=== PATIENT | female | born 1960 ===

== ENCOUNTER 2022-05-16 12:25 | Emergency (ER) | payer SELFPAY ==
[2022-05-16 12:57] VITALS: BP 155/61
[2022-05-16] MEDS ORDERED: TETANUS,DIPH,PERTUSS(ACELL) VACCINE 0.5 ML SYRINGE IM ONE (13:10)
--- NOTE | 2022-05-16 13:34 | Emergency Department Report ---
ED General Adult HPI - General Chief complaint: Extremity Injury, Upper Stated complaint: HAND PAIN Time Seen by Provider: 05/16/22 13:05 Source: patient Mode of arrival: Ambulatory Limitations: No Limitations - History of Present Illness Initial comments: 62 yo female presents to ed for evaluation after accidental needle stick. 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 She states that she did rinse the area then cleaned it with alcohol after it happened. She states that she is unsure of who used the lancet. Complaint: needle stick -: Sudden Severity scale (0 -10): 0 Associated Symptoms: denies: chest pain, cough, fever/chills Treatments Prior to Arrival: none - Related Data Previous Rx's Medication Instructions Recorded Last Taken Type Emtricitabine/Tenofovir (Tdf) 2 each PO BID #60 tab 05/16/22 Unknown Rx [Truvada 100 mg-150 mg Tablet] Raltegravir Potassium [Isentress] 400 mg PO BID #60 tab 05/16/22 Unknown Rx Allergies Allergy/AdvReac Type Severity Reaction Status Date / Time No Known Allergies Allergy Verified 05/16/22 12:58 ED Review of Systems ROS: Stated complaint: HAND PAIN Other details as noted in HPI Comment: All other systems reviewed and negative Constitutional: denies: chills, fever Respiratory: denies: shortness of breath Cardiovascular: denies: chest pain, palpitations Neurological: denies: headache ED Past Medical Hx - Past Medical History Hx Arthritis: Yes - Medications Home Medications: Home Medications Medication Instructions Recorded Confirmed Last Taken Type Emtricitabine/Tenofovir (Tdf) 2 each PO BID #60 tab 05/16/22 Unknown Rx [Truvada 100 mg-150 mg Tablet] Raltegravir Potassium [Isentress] 400 mg PO BID #60 tab 05/16/22 Unknown Rx ED Physical Exam - General Limitations: No Limitations General appearance: alert, in no apparent distress - Head Head exam: Present: atraumatic, normocephalic - Eye Eye exam: Present: normal appearance. Absent: conjunctival injection - Respiratory Respiratory exam: Absent: respiratory distress - Cardiovascular Cardiovascular Exam: Present: bradycardia - GI/Abdominal GI/Abdominal exam: Absent: distended - Expanded Upper Extremity Exam Right Hand L/R Front: 1 - Positive: other (small needle steven) Vascular: Present: normal capillary refill, radial pulse. Absent: vascular compromise, Pallo - Back Exam Back exam: Present: normal inspection - Neurological Exam Neurological exam: Present: alert, oriented X3 - Psychiatric Psychiatric exam: Present: normal affect, normal mood - Skin Skin exam: Present: warm, dry, intact, normal color ED Course Vital Signs 05/16/22 05/16/22 12:52 14:22 Temperature 97.7 F Pulse Rate 49 L Respiratory 14 16 Rate Blood Pressure 155/61 [Left] O2 Sat by Pulse 99 98 Oximetry ED Medical Decision Making - Lab Data Result diagrams: 05/16/22 13:15 05/16/22 13:15 - Medical Decision Making 62 yo female presents to ed for evaluation after accidental needle stick. 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 She states that she did rinse the area then cleaned it with alcohol after it happened. She states that she is unsure of who used the lancet. Physical exam unremarkable. Tdap updated. Hep B & C and rapid HIV negative. Patient d/jam home with [facility] and [facility] and advised to follow up with her pcp, infectious disease or employee health for further evaluation and management. She verbalized understanding of and agreement with plan of care. Laboratory Last Values WBC 4.8 K/mm3 (4.5-11.0) 05/16/22 13:15 RBC 4.69 M/mm3 (3.65-5.03) 05/16/22 13:15 Hgb 12.8 gm/dl (10.1-14.3) 05/16/22 13:15 Hct 39.9 % (30.3-42.9) 05/16/22 13:15 MCV 85 fl (79-97) 05/16/22 13:15 MCH 27 pg (28-32) L 05/16/22 13:15 MCHC 32 % (30-34) 05/16/22 13:15 RDW 14.0 % (13.2-15.2) 05/16/22 13:15 Plt Count 244 K/mm3 (140-440) 05/16/22 13:15 Sodium 140 mmol/L (137-145) 05/16/22 13:15 Potassium 4.4 mmol/L (3.6-5.0) 05/16/22 13:15 Chloride 103.2 mmol/L (98-107) 05/16/22 13:15 Carbon Dioxide 26 mmol/L (22-30) 05/16/22 13:15 Anion Gap 15 mmol/L 05/16/22 13:15 BUN 15 mg/dL (7-17) 05/16/22 13:15 Creatinine 0.7 mg/dL (0.6-1.2) 05/16/22 13:15 Estimated GFR > 60 ml/min 05/16/22 13:15 BUN/Creatinine Ratio 21 % 05/16/22 13:15 Glucose 89 mg/dL (65-100) 05/16/22 13:15 Calcium 9.6 mg/dL (8.4-10.2) 05/16/22 13:15 Total Bilirubin 0.30 mg/dL (0.1-1.2) 05/16/22 13:15 AST 22 units/L (5-40) 05/16/22 13:15 ALT 20 units/L (7-56) 05/16/22 13:15 Alkaline Phosphatase 93 units/L (35-129) 05/16/22 13:15 Total Protein 7.5 g/dL (6.3-8.2) 05/16/22 13:15 Albumin 4.7 g/dL (3.9-5) 05/16/22 13:15 Albumin/Globulin Ratio 1.7 % 05/16/22 13:15 Hepatitis C Antibody Non-reactive (NonReactive) 05/16/22 13:15 HIV 1&2 Antibody Rapid Non react (Non React) 05/16/22 13:15 HIV P24 Antigen Non react (Non React) 05/16/22 13:15 Critical care attestation.: If time is entered above; I have spent that time in minutes in the direct care of this critically ill patient, excluding procedure time. ED Disposition Clinical Impression: Needle stick injury of finger of right hand Disposition: HOME / SELF CARE / HOMELESS Is pt being admited?: No Does the pt Need Aspirin: No Condition: Stable Instructions: Body Fluid Exposure Information Additional Instructions: Take medications as prescribed. Follow up with your primary care provider or infectious disease doctor or your employee health clinic for further evaluation and management. Prescriptions: Raltegravir Potassium [Isentress] 400 mg PO BID #60 tab Emtricitabine/Tenofovir (Tdf) [Truvada 100 mg-150 mg Tablet] 2 each PO BID #60 tab Referrals: GENNA TELLO MD [Staff Physician] - 3-5 Days RULA KLEIN MD [Staff Physician] - 3-5 Days Time of Disposition: 14:39
[2022-05-16 13:49] LABS: Hematocrit 39.9 % (30.3-42.9); Hemoglobin 12.8 gm/dl (10.1-14.3); Mean Corpuscular HGB Conc 32 % (30-34); Mean Corpuscular Volume 85 fl (79-97); Platelet Count 244 K/mm3 (140-440); Red Blood Count 4.69 M/mm3 (3.65-5.03)
[2022-05-16 14:07] LABS: Alanine Aminotransferase 20 units/L (7-56); Albumin 4.7 g/dL (3.9-5); Blood Urea Nitrogen 15 mg/dL (7-17); Calcium 9.6 mg/dL (8.4-10.2); Hemolysis Index 1
[2022-05-16 14:11] LABS: BUN/Creatinine Ratio 21
== END 2022-05-16 15:21 | disposition home or self-care (01) ==
LOC: ED 12:25
DX: S61.431A Puncture wound without foreign body of right hand, initial encounter (principal); M19.90 Unspecified osteoarthritis, unspecified site; Z79.899 Other long term (current) drug therapy; W46.0XXA Contact with hypodermic needle, initial encounter; Y93.89 Activity, other specified; Y92.89 Other specified places as the place of occurrence of the external cause; Y99.8 Other external cause status
CPT/HCPCS: 36415; 80053; 85027; 86706; 86803; 87806; 90471; 90715; 99283